=== PATIENT | male | born 2005 | race Caucasian/White ===

== ENCOUNTER → 2024-05-23 | Emergency (ER) | payer OTHER ==
[~2024-05-23] VITALS: Ht 175.3 cm; Wt 74.8 kg
[~2024-05-23] MED LIST: ONDANSETRON HCL 2 MG/ML VIAL ONE
[2024-05-23 10:26] VITALS: BP 127/76; O2SAT 98
[2024-05-23 11:53] LABS: HEMATOCRIT 47.7 % (39.0-48.0); HEMOGLOBIN 16.3 g/dL (13-16.00); MEAN CELL VOLUME 84.6 fL (80.0-100.00); MEAN CORPUSCULAR HGB CONC 34.2 g/dl (32.0-36.0); PLATELET COUNT 326 K/uL (150-450); RED BLOOD COUNT 5.64 M/uL (4.00-6.00); RED CELL DISTRIBUTION WIDTH 13.7 % (11.5-14.5)
[2024-05-23 12:03] LABS: PH,URINE 5.5 (5.0-8.0); URINE APPEARANCE Clear; URINE BILIRRUBIN Negative (NEGATIVE); URINE BLOOD Negative; URINE COLOR Yellow; URINE GLUCOSE Negative (NEGATIVE); URINE KETONE Negative (NEGATIVE); URINE LEUKOCYTE Negative; URINE NITRATE Negative; URINE PROTEIN Negative (NEGATIVE); URINE UROBILINOGEN 0.2 E.U./dl
[2024-05-23 12:07] LABS: URINE WBC 1.8 uL (0.0-23.2)
[2024-05-23 12:14] LABS: URINE BACTERIA 2.4 uL (0.0-1933)
[2024-05-23 12:18] LABS: ALBUMIN 4.6 gm/dL (3.4-5.0); BILIRUBIN TOTAL 0.29 mg/dL (0.3-1.2); CREATININE SERUM 1.1 mg/dL (0.70-1.30); GFR 86.23; POTASSIUM 4.3 mEq/L (3.5-5.1); TOTAL PROTEIN 8.6 gm/dL (6.4-8.2)
[2024-05-23 12:24] LABS: COCAINE NEGATIVE (NEGATIVE); METHADONE NEGATIVE (NEGATIVE); OPIATES NEGATIVE (NEGATIVE); THC ( Cannabinoids) NEGATIVE (NEGATIVE)
== END | disposition home or self-care (01) ==
LOC: EMR PED 09:53 → ER 09:53 → EMR PED 12:13
PROVIDERS: General Practice
DX: F10.929 Alcohol use, unspecified with intoxication, unspecified (principal); F19.929 Other psychoactive substance use, unspecified with intoxication, unspecified; Z88.8 Allergy status to other drugs, medicaments and biological substances